=== PATIENT | female | born 1940 | race Caucasian/White ===

== ENCOUNTER → 2016-09-28 | Outpatient (CLI) | payer MEDICARE, OTHER ==
[~2016-09-28] MED LIST: ASPIRIN CHEWABL81 MG PO; CALCIUM600 MG PO; CELEXA40 MG PO; COUMADIN5 MG PO; DOC-Q-LACE100 MG PO; IMODIUM CAP 2 MG2 MG; KLONOPIN TAB 00.5 MG PO; LEVOXYL112 MCG PO; LORTAB 7.5-3251 EACH PO; METOPROLOL SUCC25 MG PO; MICROZIDE12.5 MG PO; MOVANTIK25 MG PO; MULTIVITAMINS1 EAC1 PO; NEURONTIN 300300 MG PO; VITAMIN D 11000 UNIT PO; WARFARIN SODIUM3 MG PO
[2016-09-28 10:50] LABS: BUN/CREATININE RATIO 28 (0-10)
== END ==
LOC: LBRF 10:15
PROVIDERS: Pediatrics
DX: Z51.81 Encounter for therapeutic drug level monitoring (principal); I48.91 Unspecified atrial fibrillation; Z79.01 Long term (current) use of anticoagulants; I12.9 Hypertensive chronic kidney disease with stage 1 through stage 4 chronic kidney disease, or unspecified chronic kidney disease; N18.9 Chronic kidney disease, unspecified
CPT/HCPCS: 80048; 85610